=== PATIENT | male | born 1975 | race African-American/Black ===

== ENCOUNTER 2021-05-30 12:18 | Emergency (ER) | payer BC, OTHER ==
[~2021-05-30] VITALS: Ht 185.4 cm; Wt 78.0 kg
[~2021-05-30 12:18] MED LIST: ACET-3161 GT
[2021-05-30] MEDS ORDERED: ONDANSETRON HCL 4MG/2ML INJ IV STA (12:46)
[2021-05-30] MEDS ORDERED: MORPHINE SULFATE 4 MG/ML CPJ (NOT FOR IM USE) IV STA (12:46)
[2021-05-30] MEDS ORDERED: FAMOTIDINE 20MG/2ML VIAL IV STA (12:46)
[2021-05-30] MEDS ORDERED: SODIUM CHLORIDE 0.9% 1,000 ML IV ONE (13:00)
[2021-05-30 13:17] LABS: BASOPHILS % 0.7 % (0.0-2.0); EOSINOPHILS % 1.4 % (0.0-5.0); HEMATOCRIT. 38.5 % (42.0-52.0); HEMOGLOBIN. 12.3 g/dL (14.0-18.0); LYMPHOCYTES % 18.6 % (20.0-50.0); MEAN CORPUSCULAR HEMOGLOBIN 26.7 pg (28.0-32.0); MEAN CORPUSCULAR VOLUME 83.5 fL (80.0-94.0); MEAN PLATELET VOLUME 8.9 fl (7.4-10.4); MONOCYTES % 6.2 % (2.0-8.0); NEUTROPHILS % 73.1 % (40.0-76.0); PLATELET 176 x1000/uL (130-400); RED BLOOD CELL COUNT 4.61 mill/uL (4.7-6.1); RED CELL DISTRIBUTION WIDTH 13.3 % (11.6-14.6)
[2021-05-30 13:27] LABS: CLARITY URINE CLEAR (CLEAR); COLOR URINE YELLOW (YELLOW); KETONES URINE NEGATIVE (NEGATIVE); LEUKOCYTE ESTERASE URINE NEGATIVE (NEGATIVE); NITRITE URINE NEGATIVE (NEGATIVE); OCCULT BLOOD URINE NEGATIVE (NEGATIVE); PROTEIN URINE NEGATIVE (NEGATIVE); SPECIFIC GRAVITY URINE 1.005 (1.005-1.030); UROBILINOGEN URINE 0.2 E.U./dL (0.2-1.0)
[2021-05-30 13:28] LABS: CHLORIDE 109 mEq/L (98-107)
[2021-05-30] MEDS ORDERED: IOHEXOL-300 100 ML BOTTLE ONE (18:50)
[2021-05-30] MEDS ORDERED: HYDR-4001 MT (19:11)
[2021-05-30] MEDS ORDERED: FAMO40TA70 MT (19:11)
[2021-05-30 19:40] VITALS: BP 114/69
== END 2021-05-30 19:45 | disposition home or self-care (01) ==
LOC: EDSEX 12:18 → ER 12:39
DX: K29.70 Gastritis, unspecified, without bleeding (principal); Z79.899 Other long term (current) drug therapy
CPT/HCPCS: 36415; 74177; 76705; 80053; 81003; 83690; 85025; 96361; 96374; 96375; 99285; J2270; J2405; J3490; J7030; Q9967

== ENCOUNTER 2022-01-24 15:05 | Emergency (ER) | payer BC ==
[~2022-01-24] VITALS: Ht 185.4 cm; Wt 78.0 kg
[~2022-01-24 15:05] MED LIST changes: +FAMO40TA70 MT; +HYDR-4001 MT
[2022-01-24 15:21] VITALS: BP 121/73
[2022-01-24] MEDS ORDERED: ACETAMINOPHEN 325MG TABLET PO STA (17:49)
[2022-01-25] MEDS ORDERED: QUET50TA MT (12:21)
== END 2022-01-24 19:10 | disposition left against medical advice (07) ==
LOC: ER 15:05
DX: R44.0 Auditory hallucinations (principal)
CPT/HCPCS: 99281

== ENCOUNTER 2022-01-25 09:11 | Emergency (ER) | payer BC ==
[~2022-01-25] VITALS: Ht 188 cm; Wt 89.0 kg
[2022-01-25 09:19] VITALS: BP 121/82
[2022-01-25] MEDS ORDERED: QUET50TA MT (12:21)
== END 2022-01-25 12:34 | disposition home or self-care (01) ==
LOC: ER 09:53
DX: F41.9 Anxiety disorder, unspecified (principal)
CPT/HCPCS: 99283